=== PATIENT | female | born 1980 | race Hispanic/Latino ===

== ENCOUNTER 2025-01-10 15:33 | Emergency (ER) | payer OTHER ==
[~2025-01-10] VITALS: Ht 167.6 cm; Wt 80.3 kg
[~2025-01-10 15:33] MED LIST: ACETAMINOPHEN500 MG PO; IBUPROFEN200 M1 PO; OMEPRAZOLE20 MG PO; ONDANSETRON ODT4 MG SL; SUCRALFATE1 GM PO
[2025-01-10] MEDS ORDERED: LOSARTAN POTASS25 MG PO (17:30)
[2025-01-10 18:05] LABS: BASOPHILS 0.2 % (0-2); EOSINOPHILS 0.8 % (0-6); HEMATOCRIT 39.6 % (35.0-50.0); LYMPHOCYTES 30.1 % (24-44); MCH 31.1 (27-36); MCHC 35.4 g/dl (30-36); MCV 87.9 fl (81-99); MONOCYTES 4.8 % (0-12); NEUTROPHILS 64.1 % (39-80); PLATELET COUNT 264 K/uL (140-440); RBC 4.51 M/ul (4.3-5.7)
[2025-01-10] MEDS ORDERED: KETOROLAC TROMETHAMINE 30 MG/ML VIAL IV ONE (18:15)
[2025-01-10 18:23] LABS: ALBUMIN 3.9 g/dL (3.4-5.0); ALBUMIN/GLOBULIN RATIO 0.95 (1.1-2.4); ANION GAP 10.8 (7-21); BILIRUBIN, TOTAL 0.4 mg/dL (0.2-1.0); BUN/CREATININE RATIO 17.94 (6.0-28.6); CREATININE, SERUM 0.78 mg/dL (0.55-1.02); POTASSIUM 3.8 mmol/L (3.5-5.1)
[2025-01-10] MEDS ORDERED: IBU800 MG PO (20:21)
[2025-01-10 20:30] VITALS: BP 133/98
== END 2025-01-10 20:37 | disposition home or self-care (01) ==
LOC: ED 15:33
PROVIDERS: Emergency Medicine
DX: G43.909 Migraine, unspecified, not intractable, without status migrainosus (principal)
CPT/HCPCS: 36415; 80053; 84439; 85025; 96374; 99284-25; J1885